=== PATIENT | female | born 1970 | race Caucasian/White ===

== ENCOUNTER 2016-09-12 13:01 | Outpatient (CLI) | payer OTHER ==
--- NOTE | 2016-09-12 15:10 | DIAGNOSTIC IMAGING REPORT ---
PROCEDURE: US BILATERAL CAROTID DOPPLER INDICATION: Follow-up stenosis left ICA TECHNIQUE: Color Doppler duplex imaging of the carotid and vertebral vessels. COMPARISON: 08/10/2015 and 12/03/2014 FINDINGS: Right carotid system: Mild eccentric soft plaque in the right carotid bulb at the bifurcation and extending into the proximal internal carotid artery causing slight luminal stenosis but no velocity elevation or wave form alteration. No significant change since the previous study. There has been increased extension of soft plaque into the external carotid artery now causing a moderate subjective luminal stenosis without velocity elevation. Left carotid system: Stable focal irregular soft plaque in the proximal internal carotid artery causing mild luminal stenosis, but turbulent flow is seen by broadening of the spectral wave forms and mild velocity elevation. No significant change compared to the previous study. Vertebral System: Antegrade vertebral artery flow bilaterally. Right common carotid artery peak systolic velocity 75 cm/second. Right internal carotid artery peak systolic velocity 104 cm/second. Right external carotid artery peak systolic velocity 93 cm/second. Right ipstubtd-yj-jkjpts carotid artery ratio 1.4 Right vertebral artery peak systolic velocity 51 cm/second. Left common carotid artery peak systolic velocity 102 cm/second. Left internal carotid artery peak systolic velocity 155 cm/second. Left external carotid artery peak systolic velocity 106 cm/second. Left grlamawa-sw-uvclrz carotid artery ratio 1.5 Left vertebral artery peak systolic velocity 45 cm/second. IMPRESSION: 1. Stable mild to moderate left internal carotid artery stenosis secondary to soft atherosclerotic plaque. Stenosis estimated to be about 50%. 2. Stable mild right ICA stenosis secondary to soft plaque. Stenosis estimated to be about 15%, stable. 3. Mild increased in soft plaque extending into the right external carotid artery causing subjectively moderate subjective stenosis but no significant velocity elevation. 4. Antegrade vertebral artery flow bilaterally. Velocity criteria are extrapolated from diameter data as defined by the [employer] of [employer] in Ultrasound Consensus Conference, Radiology 2003; 229; 340-346.
--- NOTE | 2016-09-12 15:10 | DIAGNOSTIC IMAGING REPORT ---
PROCEDURE: US BILATERAL CAROTID DOPPLER INDICATION: Follow-up stenosis left ICA TECHNIQUE: Color Doppler duplex imaging of the carotid and vertebral vessels. COMPARISON: 08/10/2015 and 12/03/2014 FINDINGS: Right carotid system: Mild eccentric soft plaque in the right carotid bulb at the bifurcation and extending into the proximal internal carotid artery causing slight luminal stenosis but no velocity elevation or wave form alteration. No significant change since the previous study. There has been increased extension of soft plaque into the external carotid artery now causing a moderate subjective luminal stenosis without velocity elevation. Left carotid system: Stable focal irregular soft plaque in the proximal internal carotid artery causing mild luminal stenosis, but turbulent flow is seen by broadening of the spectral wave forms and mild velocity elevation. No significant change compared to the previous study. Vertebral System: Antegrade vertebral artery flow bilaterally. Right common carotid artery peak systolic velocity 75 cm/second. Right internal carotid artery peak systolic velocity 104 cm/second. Right external carotid artery peak systolic velocity 93 cm/second. Right nzjzsovk-yo-rabtxc carotid artery ratio 1.4 Right vertebral artery peak systolic velocity 51 cm/second. Left common carotid artery peak systolic velocity 102 cm/second. Left internal carotid artery peak systolic velocity 155 cm/second. Left external carotid artery peak systolic velocity 106 cm/second. Left vlybibhf-ey-rlmbvy carotid artery ratio 1.5 Left vertebral artery peak systolic velocity 45 cm/second. IMPRESSION: 1. Stable mild to moderate left internal carotid artery stenosis secondary to soft atherosclerotic plaque. Stenosis estimated to be about 50%. 2. Stable mild right ICA stenosis secondary to soft plaque. Stenosis estimated to be about 15%, stable. 3. Mild increased in soft plaque extending into the right external carotid artery causing subjectively moderate subjective stenosis but no significant velocity elevation. 4. Antegrade vertebral artery flow bilaterally. Velocity criteria are extrapolated from diameter data as defined by the [employer] of [employer] in Ultrasound Consensus Conference, Radiology 2003; 229; 340-346.
== END 2016-09-12 23:00 ==
LOC: US SRH 13:01
DX: I65.22 Occlusion and stenosis of left carotid artery (principal)